=== PATIENT | female | born 1985 | race Caucasian/White ===

== ENCOUNTER 2022-12-31 13:27 | Emergency (ER) | payer OTHER, SELFPAY ==
--- NOTE | ~2022-12-31 | XR_ITS ---
EXAM: XR wrist RT min 3V DATE: 12/31/2022 14:43 HISTORY: no known injury, wrist pain that radiates up arm . COMPARISON: None available. FINDINGS: Decreased mineralization. No fracture or dislocation. No lytic or blastic lesion. Joint sp aces are maintained. No erosion or periosteal change. Soft tissues within normal limits. IMPRESSION: No acute osseous finding in the right wrist. Reviewed, dictated and finalized at location K.
[2022-12-31 13:36] VITALS: BP 95/45; PULSE 72; RESP 14; TEMP 37.2; O2SAT 100
--- NOTE | 2022-12-31 14:06 | ED.EXTPRO ---
HPI - Extremity Problem General Chief complaint: Extremity Problem,Nontraumatic Stated complaint: Right Arm/Wrist Pain Time Seen by Provider: 12/31/22 14:28 Source: patient Mode of arrival: ambulatory Limitations: no limitations History of Present Illness HPI Narrative: 37-year-old female presented for complaint of right wrist pain for about 3 days. She denies specific injury, states she pushed on the washer at the [employer] prior to symptom onset. States she has fibromyalgia and has broken the wrist and had a ganglion cyst removed at the site. Reports pain is constant, sharp, and shoots from the wrist to the shoulder at times, worse with any movement. Reports decreased ROM due to the pain. Denies swelling or bruising. denies numbness, tingling, weakness of the hand. She takes meloxicam for fibromyalgia. Has been wearing a wrist splint and using pain cream. Related Data Home Medications Medication Instructions Recorded Confirmed albuterol sulfate 90 mcg/actuation inhalation 12/31/22 aerosol inhaler buspirone 7.5 mg tablet mg 12/31/22 clonazepam 0.5 mg tablet mg 12/31/22 fluoxetine 60 mg tablet mg 12/31/22 meloxicam 15 mg tablet mg 12/31/22 omeprazole 20 mg capsule,delayed mg 12/31/22 release Allergies Allergy/AdvReac Type Severity Reaction Status Date / Time latex Allergy Unknown Other Verified 12/31/22 13:50 COCONUT Allergy Unknown Photosensit Uncoded 12/31/22 13:50 ivity Review of Systems Review of Systems: CONSTITUTIONAL: Denies body aches, fever, chills EYES: Denies visual changes ENT: Denies rhinorrhea, congestion CARDIOVASCULAR: Denies chest pain, palpitations, or edema. RESPIRATORY: Denies cough or dyspnea. GASTROINTESTINAL: Denies abdominal pain, nausea, vomiting, or diarrhea. SKIN: Denies rash, itching, or wounds. MUSCULOSKELETAL: per HPI NEUROLOGIC: Denies headache, numbness, tingling, or weakness. PSYCH: Denies depression or anxiety. All systems reviewed & are unremarkable except as noted in HPI and below PMFSH Past Medical History Medical History (Updated 12/31/22 @ 15:06 by Missy Best, JORGE) Fibromyalgia Ganglion cyst Raynaud disease Comments At time of signature, I have reviewed and agree with nursing past medical, surgical, social and family history unless otherwise noted. Please see nursing chart for further information. There is no relevant family history pertinent to the presenting complaint Exam Narrative: GENERAL: Appears in pain, in no acute distress. HEAD: Normocephalic, atraumatic. EYES: PERRLA, conjunctivae clear NECK: Supple. CHEST: Speaks in full sentences. No respiratory distress. HEART: Regular rate and rhythm. Normal and equal peripheral pulses. EXTREMITIES: Right hand has normal sensation, decreased strength and range of motion at wrist due to pain with movement. Mild radial/volar swelling and tenderness. No ecchymosis. No open wounds, obvious deformity; pulse palpable and equal bilaterally, skin warm, dry, pink. Capillary refill less than 3 seconds. SKIN: Warm, dry, no rash. NEURO: Alert and oriented x3. PSYCH: Normal mood and affect Course Course Emergency Course: Patient is aware of diagnosis, understands and agrees to treatment plan. Anticipatory guidance given. Patient agrees to follow-up as directed and is aware of reasons to seek care at the emergency department. Portions of this record may have been created with voice recognition software Level of Care: Express Care Visit Vital Signs Vital signs: Vital Signs Temperature 99 F 12/31/22 13:36 Pulse Rate 72 12/31/22 13:36 Respiratory Rate 14 12/31/22 13:36 Blood Pressure 95/45 L 12/31/22 13:36 Pulse Oximetry 100 12/31/22 13:36 Oxygen Delivery Room Air 12/31/22 13:36 Temperature 99 F 12/31/22 13:36 Pulse Rate 72 12/31/22 13:36 Respiratory Rate 14 12/31/22 13:36 Blood Pressure 95/45 L 12/31/22 13:36 Pulse Oximetry 100
== END 2022-12-31 15:30 | disposition home or self-care (01) ==
PROVIDERS: Emergency Provider Nurse Practitioner Family; PCP Physician Assistant
DX: M25.531 Pain in right wrist (principal); M79.7 Fibromyalgia; I73.00 Raynaud's syndrome without gangrene
CPT/HCPCS: 73110; 99213; G0463